=== PATIENT | male | born 1975 | race Caucasian/White ===

== ENCOUNTER 2019-02-22 11:45 | Emergency (ER) | payer OTHER ==
[~2019-02-22] VITALS: Ht 188 cm; Wt 77.1 kg
[~2019-02-22 11:45] MED LIST: Percocet 5-3251 EACH PO; Zofran Odt4 MG SL
== END 2019-02-22 13:02 | disposition home or self-care (01) ==
LOC: ER 11:45
DX: S42.012A Anterior displaced fracture of sternal end of left clavicle, initial encounter for closed fracture (principal); Z87.891 Personal history of nicotine dependence; W01.0XXA Fall on same level from slipping, tripping and stumbling without subsequent striking against object, initial encounter
CPT/HCPCS: 73030